=== PATIENT | female | born 1970 | race Caucasian/White ===

== ENCOUNTER 2018-02-11 20:45 | Emergency (ER) | payer BC ==
[~2018-02-11] VITALS: Ht 157.5 cm; Wt 72.6 kg
[2018-02-11] MEDS ORDERED: ZITHROMAX100 MG/51 (20:55)
== END 2018-02-11 22:20 | disposition home or self-care (01) ==
LOC: ER 20:45
DX: J09.X2 Influenza due to identified novel influenza A virus with other respiratory manifestations (principal)